=== PATIENT | female | born 1995 | race Caucasian/White ===

== ENCOUNTER 2024-06-09 05:17 | Inpatient (IN) | payer OTHER ==
[2024-06-08 11:38] LABS: Hematocrit 35.3 % (34.9-44.5); Platelet Count 164 10x3/uL (150-450)
[2024-06-08 12:13] LABS: HBsAg Index 0.25 S/CO (0-0.99); HIV (1/2) Antibody/Antigen Non-Reactive (NonReactive); Hep B Surf Ag Non-Reactive S/CO (NonReactive)
[2024-06-08 12:14] LABS: Syphilis Antibody Nonreactive (Nonreactive); Syphilis Antibody Index 0.04 S/CO (<1.00 Non-Reactive)
[2024-06-09 05:54] VITALS: BMI 29.2
[2024-06-09] MEDS ORDERED: Promethazine HCl 25 MG/ML VIAL IM PRN ×3 (05:54→10:08)
[2024-06-09] MEDS ORDERED: Misoprostol 200 MCG TAB PR PRN (05:54)
[2024-06-09] MEDS ORDERED: Diphenoxylate HCl/Atropine Tablet PO PRN (05:54)
[2024-06-09] MEDS ORDERED: Methylergonovine 0.2 MG/ML VIAL IM PRN (05:54)
[2024-06-09] MEDS ORDERED: Tranexamic Acid 1,000 MG/10 ML VIAL IVP PRN (05:54)
[2024-06-09] MEDS ORDERED: Carboprost 250 MCG/ML AMP IM PRN (05:54)
[2024-06-09] MEDS ORDERED: Oxytocin 30 units/NS 500 ML 500 ML IV SCH (05:54)
[2024-06-09] MEDS ORDERED: Ondansetron PF 4 MG/2 ML Vial IVP PRN ×4 (05:54→10:08)
[2024-06-09] MEDS ORDERED: hydrALAZINE 20 MG/ML VIAL SLOW IVP PRN ×2 (05:54→10:08)
[2024-06-09] MEDS ORDERED: Bicitra 30 ML UDCUP PO PRN (05:54)
[2024-06-09] MEDS: Famotidine/PF 20 mg/2ml Vial SLOW IVP PRN (06:55)
[2024-06-09] MEDS: CEFAZOLIN 2 GM in Sodium Chloride 0.9% 100 ML IVPB SCH (06:55)
[2024-06-09] MEDS: Lactated Ringer's 1,000 ML IV SCH (06:55)
[2024-06-09] MEDS ORDERED: fentaNYL 50 mcg/mL 1 mL Vial SLOW IVP PRN (07:27)
[2024-06-09] MEDS ORDERED: Naloxone HCl 0.4 mg/ml Vial IV PRN (07:27)
[2024-06-09] MEDS ORDERED: diphenhydrAMINE 50 MG/ML VIAL IVP PRN (07:27)
[2024-06-09] MEDS ORDERED: Naloxone HCl 0.4 mg/ml Vial IVP PRN ×2 (07:27)
[2024-06-09] MEDS ORDERED: Moisturizing Cream (Eucerin) 113 GM JAR TOP PRN (07:27)
[2024-06-09] MEDS ORDERED: Meperidine HCl/PF 25 MG (1 mL) VIAL SLOW IVP PRN (07:27)
[2024-06-09] MEDS ORDERED: Communication Order-Pharmacy FS SCH (07:30)
[2024-06-09] MEDS ORDERED: Lanolin Ointment 7 GM TUBE TOP PRN (10:08)
[2024-06-09] MEDS ORDERED: HYDROcodone/Acetaminophen 5/325 mg Tablet PO PRN (10:08)
[2024-06-09] MEDS ORDERED: diphenhydrAMINE 25 MG CAP PO PRN (10:08)
[2024-06-09] MEDS ORDERED: Bisacodyl 10 MG SUPP PR PRN (10:08)
[2024-06-09] MEDS ORDERED: Meperidine HCl/PF 25 MG (1 mL) VIAL IM PRN (10:08)
[2024-06-09] MEDS: Morphine PF 10 MG/10 ML VIAL ONE (10:12)
[2024-06-09] MEDS: ePHEDrine Sulfate 50 MG/10 ML VIAL ONE (10:12)
[2024-06-09] MEDS: Dexmedetomidine 200 MCG/2 ML VIAL ONE (10:12)
[2024-06-09] MEDS: PHENYLEPHRINE-NS 100 MCG/ML 10 ML SYRINGE ONE (10:13)
[2024-06-09] MEDS: Ondansetron PF 4 MG/2 ML Vial ONE (10:13)
[2024-06-09] MEDS: Oxytocin 10 UNITS/ML VIAL ONE (10:13)
[2024-06-09] MEDS: Ketorolac Tromethamine 30 MG (1 mL) VIAL ONE (10:13)
[2024-06-09] MEDS: Phenylephrine 40 MG/NS 250 ML 250 ML ONE (10:13)
[2024-06-09] MEDS: Prenatal Vitamin 1 TAB PO SCH (11:06)
[2024-06-09] MEDS: Docusate 100 MG CAP PO SCH ×2 (11:06→20:25)
[2024-06-09] MEDS: Ferrous Sulfate 325 MG TAB PO SCH (11:06)
[2024-06-09] MEDS: Ketorolac Tromethamine 30 MG (1 mL) VIAL IVP SCH (14:22)
[2024-06-09] MEDS ORDERED: Ketorolac Tromethamine 30 MG (1 mL) VIAL IVP SCH (14:30)
[2024-06-09] MEDS ORDERED: Ketorolac Tromethamine 30 MG (1 mL) VIAL IVP PRN (14:30)
[2024-06-09] MEDS: Acetaminophen 500 MG TAB PO PRN (20:33)
[2024-06-09 21:55] LABS: Bilirubin Neg (Negative); Blood, Urine 50 (Negative); Clarity Slightly Cloudy (Clear); Glucose, Urine (Dipstick) Normal (Negative); Ketone, Urine Negative (Negative); Leukocyte 100 (Negative); Nitrite Negative (Negative); Protein, Urine (Dipstick) 30 mg/dl (Neg-Trace)
[2024-06-09 22:20] LABS: Bacteria/HPF None Seen HPF (None Seen); Squamous Epithelial 0-3 HPF (0-3)
[2024-06-10] MEDS: Ferrous Sulfate 325 MG TAB PO SCH (00:24)
[2024-06-10 04:31] LABS: Hematocrit 29.3 % (34.9-44.5); Hemoglobin 9.3 g/dL (12.0-15.5); Mean Corpuscular HGB CONC 31.7 g/dL (32.0-36.0); Mean Corpuscular Hemoglobin 26.4 pg (27.0-33.0); Mean Corpuscular Volume 83.2 fL (81.6-98.3); RBC Distribution Width 13.7 % (11.5-14.5); Red Blood Cell (RBC) Count 3.52 10x6/uL (3.90-5.03); White Blood Cell (WBC) Count 9.8 10x3/uL (3.5-10.5)
[2024-06-10 04:41] LABS: Mean Platelet Volume 11.6 fL (7.4-10.4); Platelet Count 124 10x3/uL (150-450)
[2024-06-10] MEDS: cefTRIAXone\\ROCEPHIN 2 GM in Sodium Chloride 0.9% 100 ML IVPB SCH (05:45)
[2024-06-10] MEDS: HYDROcodone/Acetaminophen 5/325 mg Tablet PO PRN (06:02)
[2024-06-10] MEDS: Prenatal Vitamin 1 TAB PO SCH (08:11)
[2024-06-10] MEDS: Simethicone Chewable 80 MG TAB PO PRN (13:36)
[2024-06-10] MEDS: Ibuprofen 800 MG TAB PO SCH (13:36)
[2024-06-12 07:57] VITALS: BP 114/63; TEMP 98.2
[2024-06-12] MEDS: Boostrix 0.5 ML (Tdap) VIAL (>/=7 yrs of age) IM ONE (08:09)
== END 2024-06-12 16:45 | disposition home or self-care (01) | DRG 787 ==
LOC: CSHLD 05:17 → CSHPED 10:40
PROVIDERS: ADMIT Family Medicine; ATTEND Family Medicine
PROC: 10D00Z1 Extraction of Products of Conception, Low, Open Approach (ICD-10-PCS; principal; 2024-06-09)
DX: O34.211 Maternal care for low transverse scar from previous cesarean delivery (principal); N39.0 Urinary tract infection, site not specified; O86.20 Urinary tract infection following delivery, unspecified; Z3A.39 39 weeks gestation of pregnancy; Z37.0 Single live birth
CPT/HCPCS: 36415; 51702; 81001; 85014; 85018; 85027; 85049; 86780; 86850; 86900; 86901; 87340; 87389; C1889; J0696; J1885; J2274; J2405; J2590; J3490; J7120